=== PATIENT | female | born 1965 | race Caucasian/White ===

== ENCOUNTER 2021-03-11 16:26 | Emergency (ER) | payer BC, OTHER ==
[~2021-03-11] VITALS: Ht 170.2 cm; Wt 73.0 kg
[~2021-03-11 16:26] MED LIST: NASOCORT SPRAY
[2021-03-11] MEDS ORDERED: CASIRIVIMAB/IMDEVIMAB inject. 10 ML in normal saline 100ml IV soln 100 ML IV ONE (17:15)
--- NOTE | 2021-03-11 17:40 | NUR ---
called pharmacy med not ready.
[2021-03-11 20:26] VITALS: BP 132/68
== END 2021-03-11 20:27 | disposition home or self-care (01) ==
LOC: ER 16:27
DX: U07.1 COVID-19 (principal); R05.9 Cough, unspecified; E78.00 Pure hypercholesterolemia, unspecified; I10 Essential (primary) hypertension; E11.9 Type 2 diabetes mellitus without complications; E78.5 Hyperlipidemia, unspecified; Z90.49 Acquired absence of other specified parts of digestive tract; Z88.1 Allergy status to other antibiotic agents; Z88.2 Allergy status to sulfonamides
CPT/HCPCS: 99283; M0243; Q0244

== ENCOUNTER 2024-04-02 22:51 | Inpatient (IN) | payer BC ==
[~2024-04-02] VITALS: Ht 170.2 cm; Wt 78.0 kg
[2024-04-02 23:16] LABS: BASOPHILS % (AUTO) 0.5 % (0-1); EOSINOPHILS # (AUTO) 0.3 X10'3 (0-0.9); EOSINOPHILS % (AUTO) 3.8 % (0-6); HEMOGLOBIN 14.5 g/dl (12.0-16.0); LYMPHOCYTES # (AUTO) 3.6 X10'3 (1.1-4.8); MEAN CORPUSCULAR HEMOGLOBIN 29.9 PG (27.0-31.0); MEAN CORPUSCULAR HGB CONC 33.7 g/dL (33.0-36.5); MEAN CORPUSCULAR VOLUME 88.7 FL (78-98); MEAN PLATELET VOLUME 9.2 FL (7.4-10.4); MONOCYTES # (AUTO) 0.8 X10'3 (0-0.9); MONOCYTES % (AUTO) 10.2 % (2-12); NEUTROPHILS # (AUTO) 3.3 X10'3 (1.8-7.7); NEUTROPHILS % (AUTO) 40.5 % (42-75); PLATELET COUNT 162 X10'3 (140-440); RED BLOOD COUNT 4.85 X10'6 (4.20-5.60); RED CELL DISTRIBUTION WIDTH 14.2 % (11.5-14.5); WHITE BLOOD COUNT 8.1 X10'3 (4.5-11.0)
[2024-04-02 23:45] LABS: ALANINE AMINOTRANSFERASE 44 U/L (12-78); ALBUMIN 3.7 G/DL (3.4-5.0); ALBUMIN/GLOBULIN RATIO 1.1 (1.1-1.5); ALKALINE PHOSPHATASE 106 IU/L (46-116); ASPARTATE AMINO TRANSFERASE 33 U/L (10-37); BILIRUBIN,TOTAL 0.3 MG/DL (0.1-1.0); BLOOD UREA NITROGEN 15 MG/DL (7-18); BUN/CREATININE RATIO 20.3 (10.0-20.0); CALCIUM 8.4 MG/DL (8.5-10.1); CREATININE 0.74 MG/DL (0.40-0.90); GLUCOSE 106 MG/DL (70-104); PRO BRAIN NATRIURETIC PEPTIDE 167 PG/ML (0-125); TOTAL CARBON DIOXIDE 26.2 MMOL/L (24-32); TOTAL PROTEIN 7.2 G/DL (6.4-8.2); eGFR 80 ML/MIN
[2024-04-02 23:56] LABS: ANION GAP 9 (8-16); CHLORIDE 104 MMOL/L (99-107); POTASSIUM 3.5 MMOL/L (3.5-5.1); SODIUM 139 MMOL/L (135-145)
[2024-04-03] VITALS (13 sets, daily range): BP systolic 143–168; BP diastolic 63–91; PULSE 60–106; RESP 14–22; TEMP 98.1–98.9; O2SAT 93–98
[2024-04-03] MEDS ORDERED: potassium Cl 20 mEq SR tablet PO PRN ×2 (02:35)
[2024-04-03] MEDS ORDERED: mag hydrox/Alum hydrox/simeth 30ml oral suspension PO PRN (02:35)
[2024-04-03] MEDS ORDERED: potassium Cl 40MEQ/1/2NS 520ml 520 ML IV PRN (02:35)
[2024-04-03] MEDS ORDERED: ondansetron/PF 4mg/2ml inj IV PRN (02:35)
[2024-04-03] MEDS ORDERED: magnesium hydroxide 30ml (MOM) UD suspension PO PRN (02:35)
[2024-04-03] MEDS ORDERED: magnesium Cl slow-release 64mg tablet PO PRN (02:35)
[2024-04-03] MEDS ORDERED: acetaminophen 325mg tablet PO PRN (02:35)
[2024-04-03] MEDS ORDERED: magnesium sulf-water 2g/50mL 50 ML IV PRN (02:35)
[2024-04-03] MEDS ORDERED: magnesium sulf-water 4G/100mL 100 ML IV PRN (02:35)
[2024-04-03] MEDS ORDERED: nitroGLYCERIN 0.4mg SUBLingual tab SL PRN (02:40)
[2024-04-03] MEDS ORDERED: aminophylline 250mg/10ml inj. IV PRN (02:40)
[2024-04-03] MEDS ORDERED: metoprolol tartrate 1mg/ml inj IV PRN (02:40)
[2024-04-03] MEDS: LIDOcaine 5% patch TP SCH (02:55)
[2024-04-03] MEDS ORDERED: ESCI20TA39 PO (04:07)
[2024-04-03] MEDS ORDERED: BUPR-72 PO (04:07)
[2024-04-03] MEDS ORDERED: ESTR1TAB28 PO (04:07)
[2024-04-03] MEDS ORDERED: EMPA25TA PO (04:07)
[2024-04-03] MEDS ORDERED: ATOR10TA87 PO (04:14)
[2024-04-03] MEDS ORDERED: LISI40TA13 PO (04:14)
[2024-04-03 07:56] LABS: APTT 24 SECONDS (22-32); PROTHROMBIN TIME 10.6 SECONDS (9.0-12.0)
[2024-04-03] MEDS: K and/or MAG REPLACEMENT MC SCH (08:00)
[2024-04-03] MEDS: ESCITALOPRAM 10 mg tablet 10 MG TABLET PO SCH (08:00)
[2024-04-03] MEDS: atorvastatin 10mg tablet PO SCH (08:01)
[2024-04-03] MEDS: estradiol 1mg tablet PO SCH (08:01)
[2024-04-03] MEDS: docusate sod 100mg capsule PO SCH (08:01)
[2024-04-03] MEDS: enoxaparin 40mg/0.4ml syringe SUBCUT SCH (08:13)
[2024-04-03] MEDS: lisinopril 20mg tablet PO SCH (08:13)
[2024-04-03] MEDS: EMPAGLIFLOZIN 25 MG TABLET PO SCH (08:13)
[2024-04-03] MEDS: buPROPion SR 150mg tablet PO SCH (08:14)
[2024-04-03 08:20] LABS: HEMOGLOBIN A1C 6.2 % (4.5-6.2)
[2024-04-03 08:25] LABS: MAGNESIUM 1.7 MG/DL (1.5-2.4); POTASSIUM 3.5 MMOL/L (3.5-5.1)
[2024-04-03] MEDS: regadenoson 0.4mg/5ml syringe IV PRN (09:08)
[2024-04-03] MEDS ORDERED: iohexol 350MG/ML 100ml bottle IV ONE (13:26)
[2024-04-04 06:00] VITALS: BP 127/62; PULSE 63; RESP 17; TEMP 98.2; O2SAT 93
[2024-04-04 08:30] VITALS: RESP 18; O2SAT 97
[2024-04-04 08:40] LABS: BASOPHILS % (AUTO) 0.7 % (0-1); EOSINOPHILS # (AUTO) 0.2 X10'3 (0-0.9); EOSINOPHILS % (AUTO) 3.8 % (0-6); HEMATOCRIT 40.5 % (35.0-45.0); HEMOGLOBIN 13.3 g/dl (12.0-16.0); LYMPHOCYTES # (AUTO) 2.1 X10'3 (1.1-4.8); LYMPHOCYTES % (AUTO) 39.5 % (21-51); MEAN CORPUSCULAR HEMOGLOBIN 29.3 PG (27.0-31.0); MEAN CORPUSCULAR HGB CONC 32.8 g/dL (33.0-36.5); MEAN CORPUSCULAR VOLUME 89.4 FL (78-98); MEAN PLATELET VOLUME 9.2 FL (7.4-10.4); MONOCYTES # (AUTO) 0.6 X10'3 (0-0.9); MONOCYTES % (AUTO) 10.5 % (2-12); NEUTROPHILS # (AUTO) 2.5 X10'3 (1.8-7.7); NEUTROPHILS % (AUTO) 45.5 % (42-75); PLATELET COUNT 146 X10'3 (140-440); RED BLOOD COUNT 4.53 X10'6 (4.20-5.60); RED CELL DISTRIBUTION WIDTH 13.9 % (11.5-14.5); WHITE BLOOD COUNT 5.4 X10'3 (4.5-11.0)
[2024-04-04 09:04] LABS: ALANINE AMINOTRANSFERASE 45 U/L (12-78); ALBUMIN 3.3 G/DL (3.4-5.0); ALKALINE PHOSPHATASE 81 IU/L (46-116); ANION GAP 11 (8-16); ASPARTATE AMINO TRANSFERASE 32 U/L (10-37); BILIRUBIN,TOTAL 0.8 MG/DL (0.1-1.0); BLOOD UREA NITROGEN 13 MG/DL (7-18); BUN/CREATININE RATIO 22.4 (10.0-20.0); CALCIUM 8.5 MG/DL (8.5-10.1); CHLORIDE 106 MMOL/L (99-107); CHOLESTEROL 210 MG/DL (0-200); CREATININE 0.58 MG/DL (0.40-0.90); GLUCOSE 102 MG/DL (70-104); HDL CHOLESTEROL 42 MG/DL (35-60); LDL CHOLESTEROL 129 MG/DL (50-100); POTASSIUM 3.6 MMOL/L (3.5-5.1); SODIUM 140 MMOL/L (135-145); TOTAL CARBON DIOXIDE 22.6 MMOL/L (24-32); TOTAL PROTEIN 6.5 G/DL (6.4-8.2); TRIGLYCERIDES 237 MG/DL (20-135); eCRCL 102 ML/MIN; eGFR > 90 ML/MIN
[2024-04-04 10:00] VITALS: BP 127/73; PULSE 91; RESP 16; TEMP 98.4; O2SAT 95
[2024-04-04] MEDS ORDERED: PANT-47 PO (13:40)
[2024-04-04] MEDS ORDERED: ATOR20TA66 PO (13:40)
== END 2024-04-04 15:20 | disposition home or self-care (01) | DRG 305 ==
LOC: ER 22:52 → ED HOLD 04-03 02:11 → S STAY 04-03 13:03 → ORTHO 4S 04-03 16:35
PROVIDERS: ADMIT Surgery Surgical Critical Care; ATTEND Family Medicine
PROC: 4A02XM4 Measurement of Cardiac Total Activity, External Approach (ICD-10-PCS; principal; 2024-04-03)
PROC: 3E033HZ Introduction of Radioactive Substance into Peripheral Vein, Percutaneous Approach (ICD-10-PCS; 2024-04-03)
PROC: B32T1ZZ Computerized Tomography (CT Scan) of Left Pulmonary Artery using Low Osmolar Contrast (ICD-10-PCS; 2024-04-03)
PROC: B3201ZZ Computerized Tomography (CT Scan) of Thoracic Aorta using Low Osmolar Contrast (ICD-10-PCS; 2024-04-03)
PROC: B32S1ZZ Computerized Tomography (CT Scan) of Right Pulmonary Artery using Low Osmolar Contrast (ICD-10-PCS; 2024-04-03)
DX: I16.1 Hypertensive emergency (principal); I10 Essential (primary) hypertension; I20.89 Other forms of angina pectoris; E11.9 Type 2 diabetes mellitus without complications; E78.00 Pure hypercholesterolemia, unspecified; Z88.1 Allergy status to other antibiotic agents; Z88.2 Allergy status to sulfonamides; Z90.49 Acquired absence of other specified parts of digestive tract; Z90.710 Acquired absence of both cervix and uterus
CPT/HCPCS: 36415; 71045; 71275; 78452; 80053; 80061; 83036; 83735; 83880; 84132; 84484; 85025; 85610; 85730; 87081; 93005; 93017; 93306; 99285; A9500; G0378; J1650; J2785; Q9967

== ENCOUNTER 2024-12-01 16:42 | Emergency (ER) | payer BC, OTHER ==
[~2024-12-01] VITALS: Ht 167.6 cm; Wt 76.4 kg
[~2024-12-01 16:42] MED LIST changes: +ATOR20TA66 PO; +BUPR-72 PO; +EMPA25TA PO; +ESCI20TA39 PO; +ESTR1TAB28 PO; +LISI40TA13 PO; -NASOCORT SPRAY; +PANT-47 PO
--- NOTE | 2024-12-01 17:14 | Physician Documentation ---
History of Present Illness ~ Chief Complaint: Hip pain Stated Complaint: FELL AND HURT LT KNEE/HIP Time Seen by MD: 18:47 Primary Medical Doctor: NAS NEWELL This is a 59-year-old female who presents with left hip and knee pain after a ground level mechanical fall on 11/18/2024, patient reports the pain to her hip has increased. Patient additionally reports lumbar back pain since the fall, the patient reports a history of chronic low back pain. Patient reports no head strike, no blood thinner use, and no loss of consciousness. History as above. Taking ibuprofen and Tylenol with limited benefit last dose yesterday. Tetanus within 5 Years?: Yes Medication Reconciliation Allergies: Coded Allergies: Cephalexin Monohydrate (Verified Allergy, Unknown, 03/11/21) azithromycin (Verified Allergy, Unknown, 03/11/21) Uncoded Allergies: SULFA (Allergy, Unknown, 03/11/21) Scheduled Atorvastatin Calcium (Atorvastatin Calcium), 20 MG PO DAILY Bupropion HCl (Bupropion HCl Sr), 1 TAB PO DAILY, (Reported) Empagliflozin (Jardiance), 1 TAB PO DAILY, (Reported) Escitalopram Oxalate (Escitalopram Oxalate), 1 TAB PO DAILY, (Reported) Estradiol (Estradiol), 1 TAB PO DAILY, (Reported) Lisinopril* (Lisinopril*), 0.5 TAB PO DAILY, (Reported) Pantoprazole Sodium (PROTONIX tablet), 40 MG PO DAILY Past Medical History Past Medical History: High Cholesterol, Hypertension, Diabetes Past Surgical History: cholecystectomy Patient History: FH: COPD (chronic obstructive pulmonary disease) FATHER FH: heart failure FATHER MOTHER FH: hyperlipidemia Sister Alcohol Use: None Drug Use: none Review of Systems ROS All review of systems negative except as per HPI Physical Exam Vital Signs: Temperature: 98.9, Source: Temporal, Heart Rate: 92, Respiratory Rate: 18, BP: 185/85, Pulse Oximetry: 98, Weight: 76.360 Oxygen Flow Rate: 0 Physical Exam General: Patient is awake, alert, oriented x4 in no acute distress Head: Normocephalic and atraumatic. Eyes: Conjunctival normal. EOMI. PERRL. ENT: Mucous membranes moist. Neck: Supple, trachea is midline. Chest: Clear to auscultation bilaterally without rales, rhonchi, or wheezes. There is no accessory muscle use or retractions. Cardiac: RRR without murmurs, gallops, or rubs. Extremities: Some bruising noted to left anterior knee running down to mid anterior willis, tenderness to palpation to left lateral hip. Antalgic gait Progress Results/Orders Results/Orders Vital Signs 12/01/24 16:59 Temp 98.9 Pulse 92 Resp 18 B/P (MAP) 185/85 Pulse Ox 98 O2 Flow Rate 0 Medical Decision Making Findings Patient presented to the emergency room with left knee hip and back pain as per HPI. Differentials include but are not limited to fractures, dislocation, soft tissue injury, meniscal injury. X-rays performed of the knee hip and lumbar spine are reassuring today. Patient is under dosing her pain regimen and this was discussed with her. I will give her a small amount of pain medication antispasmodic medication and she is to follow up with her doctor. Departure Disposition: HOME / SELF CARE / HOMELESS Impression: Primary Impression: Hip pain Additional Impression: Knee pain Condition: Stable Discharge Instructions: Acute Knee Pain, Adult Additional Instructions: You are under dosing your pain regimen. Increase your frequency of ibuprofen and Tylenol as discussed. I will give you small amount of pain medication if this is insufficient. He will need to follow up with your doctor as you may need MRI versus physical therapy. Your x-rays today were reassuring for no fractures Referrals: NO PRIMARY CARE PROVIDER (PCP) Prescriptions Hydrocodone Bit/Acetaminophen 5/325 MG (Napoleon 5/325 MG) 5 Mg/325 Mg Tablet 1 TAB PO Q4-6 hours PRN for pain, #12 TAB Prov: GIGI BABB MD 12/01/24 Cyclobenzaprine* (Cyclobenzaprine*) 10 Mg Tablet 1 TAB PO HS for muscle spasms for 30 Days, #30 TAB 0 Refills Prov: GIGI BABB MD 12/01/24 Education Educated: Patient Educated regarding: diagnosis, treatment, need for follow up Signature Scribe Signature: No scribe Attestation: The note accurately reflects work and decisions made by me.Gigi Babb MD 12/01/24 19:08 NIKOLAI KHAN Dec 01, 2024 17:14 GIGI BABB MD Dec 01, 2024 19:08
--- NOTE | 2024-12-01 17:50 | RADIOLOGY REPORT ---
CLINICAL INDICATION: LOWER BACK PAIN/FALL TECHNIQUE: 3 radiographic views of the lumbar spine were obtained. Comparison: None FINDINGS/IMPRESSION: 5 [id number] lumbar-type vertebrae. Normal alignment of the lumbar spine. Vertebral body height s are maintained. No evidence of acute traumatic fractures or spondylolisthesis. Mild degenerative ch anges at L5-S1. Nonspecific 1.3 x 3.9 cm calcifications of the right medial mid abdomen which may represent staghorn calculus. Additional adjacent small foci of calcification are noted. There is small Focus of calcifi cation of the left mid midabdomen. Moderate amount of fecal material within the visualized colon.
--- NOTE | 2024-12-01 18:04 | RADIOLOGY REPORT ---
EXAM: XR Left Knee, 3 Views CLINICAL INDICATION: KNEE PAIN left TECHNIQUE: Three views of the left knee. COMPARISON: No relevant prior studies available. FINDINGS: BONES/JOINTS: Unremarkable. No acute fracture. No dislocation. SOFT TISSUES: Unremarkable. OTHER FINDINGS: Comparison None. IMPRESSION: No acute fracture. HS:Y
--- NOTE | 2024-12-01 18:15 | RADIOLOGY REPORT ---
Indication: HIP PAIN/BRUISING left Technique: Radiographs of the pelvis, left hip, 3 views total Comparison: None FINDINGS/IMPRESSION: No radiographic evidence for acute fracture or dislocation. No significant soft tissue edema. No rad iopaque foreign body. [id number] degenerate changes bilateral hips. Mild bilateral sacroiliac degenerative joint disease. Pelvic vascular phleboliths.
[2024-12-01] MEDS ORDERED: ketorolac trometh 15mg/ml vial 15 MG/ML ML IM ONE (19:05)
[2024-12-01] MEDS ORDERED: CYCL-1 PO (19:07)
[2024-12-01] MEDS ORDERED: HYDR-3965 PO (19:07)
[2024-12-01] MEDS: acetaminophen 325mg tablet PO ONE (19:21)
[2024-12-01] MEDS: ketorolac trometh 30MG/ML vial 30 MG/ML VIAL IM ONE (19:21)
[2024-12-01 19:25] VITALS: BP 178/82; PULSE 86; RESP 18; TEMP 98.6; O2SAT 98
== END 2024-12-01 19:27 | disposition home or self-care (01) ==
LOC: ER 16:43
DX: M25.552 Pain in left hip (principal); M25.562 Pain in left knee; E11.9 Type 2 diabetes mellitus without complications; E78.00 Pure hypercholesterolemia, unspecified; I10 Essential (primary) hypertension; W19.XXXA Unspecified fall, initial encounter; Y93.89 Activity, other specified; Y92.89 Other specified places as the place of occurrence of the external cause; Y99.8 Other external cause status
CPT/HCPCS: 72100; 73502; 73564; 96372; 99284; J1885